=== PATIENT | male | born 1950 | race Caucasian/White ===

== ENCOUNTER 2017-12-29 06:29 | Emergency (ER) | END 2017-12-29 10:17 | disposition home or self-care (01) ==

== ENCOUNTER 2018-02-22 21:14 | Emergency (ER) | END 2018-02-23 05:00 | disposition home or self-care (01) ==

== ENCOUNTER 2018-12-08 16:01 | Emergency (ER) | payer MEDICARE, OTHER ==
[~2018-12-08] VITALS: Ht 170.2 cm; Wt 69.7 kg
[~2018-12-08 16:01] MED LIST: ACET-141 PO; ASPI-817 PO; ATOR40TA68 PO; BENA20TA4 PO; IBUP-1541 PO; LEVO112T57 PO; MULTI PO; OMEP20CA16 PO
[2018-12-08 16:08] VITALS: BP 127/83; PULSE 83; RESP 20; Ht 170.2 cm; Wt 69.7 kg
[2018-12-08] MEDS ORDERED: CEPH-443 PO (16:27)
[2018-12-08] MEDS ORDERED: CEPHALEXIN 500 MG CAP PO ONE (16:30)
--- NOTE | 2018-12-08 16:32 | ERD ---
ER Documentation Chief Complaint Chief Complaint c/o dysuaria and pain in the bladder x2 days. s/p urinary stent removal HPI Translation services were utilized during this patient's encounter Language: Maltese Source: In person 68-year-old male who is very pleasant who presents to the emergency room describing dysuria urgency and frequency with scant hematuria. Patient recently underwent a cervical spine surgery. He had a Salas catheter for the procedure was just removed several days ago. Over the past several days the patient describes dysuria urgency frequency with scant hematuria. Patient describes some mild suprapubic abdominal discomfort. No fevers or chills, no flank pain. No other bleeding or bruising. Neck pain status post surgery is well controlled. ROS All systems reviewed and are negative except as per history of present illness. Medications Home Meds Active Scripts Cephalexin* (Keflex*) 500 Mg Capsule, 500 MG PO BID for 7 Days, CAP Prov:DILCIA STEIN MD 12/08/18 Reported Medications Multivitamins* (Theragran*) 1 Tab Tab, 1 TAB PO DAILY, TAB 02/23/18 Acetaminophen* (Acetaminophen*) 500 MG Extra Strength Tablet, 500 MG PO Q4H PRN for PAIN AND OR ELEVATED TEMP, TAB 02/23/18 Ibuprofen* (Ibuprofen*) 400 Mg Tablet, 400 MG PO Q6H PRN for PAIN, TAB 02/23/18 Aspirin* (Aspirin* EC) 81 Mg Tablet.dr, 81 MG PO DAILY, TAB 02/23/18 Omeprazole* (Omeprazole*) 20 Mg Capsule.dr, 20 MG PO DAILY, #30 CAP 02/23/18 Atorvastatin* (Atorvastatin*) 40 Mg Tablet, 40 MG PO QHS, #30 TAB 02/23/18 Benazepril Hcl* (Benazepril Hcl*) 20 Mg Tablet, 20 MG PO DAILY, #30 TAB 02/23/18 Levothyroxine Sodium* (Levothyroxine Sodium*) 112 Mcg Tablet, 112 MCG PO BEFORE BREAKFAST, #30 TAB 02/23/18 Allergies Allergies: Coded Allergies: No Known Allergy (Unverified , 02/23/18) PMhx/Soc History of Surgery: Yes (thyroidectomy , knee surgery) Anesthesia Reaction: No Hx Neurological Disorder: No Hx Respiratory Disorders: No Hx Cardiac Disorders: Yes (HTN) Hx Psychiatric Problems: No Hx Miscellaneous Medical Probl: Yes ( Cholesterol) Hx Alcohol Use: No Hx Substance Use: No Hx Tobacco Use: Yes (20 years ago ) Smoking Status: Former smoker FmHx Family History: No diabetes Physical Exam Vitals Vital Signs Date Temp Pulse Resp B/P (MAP) Pulse Ox O2 O2 Flow FiO2 Time Delivery Rate 12/08/18 98.2 83 20 127/83 96 16:08 (98) Physical Exam General: Well developed, well nourished, no acute distress Head: Normocephalic, atraumatic. Eyes: EOM intact ENT: Moist mucous membranes Neck: Full ROM Respiratory: No respiratory distress Cardiovascular: Well perfused distally Abdominal: Nondistended, very mild suprapubic abdominal tenderness without rebound or guarding : Deferred MSK: No edema, no unilateral swelling, 5/5 strength Neurologic: Alert and oriented, moving all extremities, normal speech, steady gait Skin: No rash Psych: Normal mood Procedures/MDM MEDICAL DECISION MAKING: Signs and symptoms very consistent with Salas catheter related urinary tract infection without signs or symptoms concerning for systemic illness or pyelonephritis. No indication for lavatory testing or diagnostic imaging. A urine culture will be sent. Patient will be initiated on Keflex empirically. First dose given in the emergency room. No signs of urinary obstruction. Patient can be safely discharged with strict return precautions. CONSULTATION: None DISPOSITION PLAN: The patient does not have an identifiable emergent medical condition that warrants inpatient hospitalization at this time. The patient is deemed safe for discharge with outpatient follow-up. We discussed follow up with the patient's primary care doctor within 24 to 48 h ours as needed. We also discussed return to the emergency room for worsening symptoms or worsening condition. Outpatient referral: None required Discharge Medications: Keflex Departure Diagnosis: Primary Impression: Acute cystitis Hematuria presence: with hematuria Qualified Codes: N30.01 - Acute cystitis with hematuria Condition: Stable Patient Instructions: Urinary Tract Infections in Men Ref[facility] Usted se aguilar hecho un examen mdico de control que le indica que no est en jud condicin que requiera tratamiento urgente en el Departamento de Emergencia. Un estudio ms profundo y el tratamiento de keating condicin pueden esperar sin ningn riesgo hasta que usted sea atendida/o en el consultorio de keating mdico o jud clnica. Es responsabilidad suya arreglar jud christina para el seguimiento del rach. MANEJO DE CONDICIONES NO URGENTES EN EL FUTURO 1) Si usted tiene un mdico de atencin primaria: Usted debera llamar a keating mdico de atencin primaria antes de venir al departamento de emergencia. Despus de las horas de consultorio, keating doctor o keating asociado/a est disponible por telfono. El mdico o enfermero de radha en el servicio telefnico puede asesorarle por kadi medio para atender el problema, o rach contrario se puede programar jud christina. 2) Si usted no tiene un mdico de atencin primaria: Llame al mdico o clnica de referencia que aparece abajo saurav las horas de consultorio para hacer jud christina para que le vean. CLINICAS: [facility] [phone] [facility] [phone] [address] [facility]. [facility] [phone] [address] [facility]. [place] [id number] [phone] [facility]. [place] [address] [phone] [facility]. [phone] [facility] () Usmalorie se aguilar hecho un examen mdico de control que le indica que no est en jud condicin que requiera tratamiento urgente en el Departamento de Emergencia. Un estudio ms profundo y el tratamiento de keating condicin pueden esperar sin ningn riesgo hasta que ted sea atendida/o en el consultorio de keating mdico o jud clnica. Es responsabilidad suya arreglar jud christina para el seguimiento del rach. MANEJO DE CONDICIONES NO URGENTES EN EL FUTURO 1) Si usted tiene un mdico de atencin primaria: Usted debera llamar a keating mdico de atencin primaria antes de venir al departamento de emergencia. Despus de las horas de consultorio, keating doctor o keating asociado/a est disponible por telfono. El mdico o enfermero de radha en el servicio telefnico puede asesorarle por kadi medio para atender el problema, o rach contrario se puede programar jud christina. 2) Si usted no tiene un mdico de atencin primaria: Llame al mdico o condado institucions de referencia que aparece abajo saurav las horas de consultorio para hacer jud christina para que le vean. SI USTED NO PUEDE PAGAR PARA DAXA UN MEDICO puede ir a: [facility] [address] [place], [place] [id number] [place] [address] [address] [place] [address] [facility] [address] [place] [address] [facility] [address] [place], [place] [phone] Additional Instructions: Return for fever, inability to urinate. Llame al doctor nombrado abajo (Referral Sources) MAANA y abhijit jud CHRISTINA PARA DENTRO DE JUD SEMANA. Dgale a la secretaria que nosotros le instruimos hacer esta christina.Avise o llame si keating condicin se empeora antes de la christina. DILCIA STEIN MD Dec 08, 2018 16:32
== END 2018-12-08 17:35 | disposition home or self-care (01) ==
LOC: E/R 16:01
DX: N30.01 Acute cystitis with hematuria (principal); I10 Essential (primary) hypertension; Z79.82 Long term (current) use of aspirin; Z87.891 Personal history of nicotine dependence
CPT/HCPCS: 87086; 99283